=== PATIENT | female | born 1970 | race Caucasian/White ===

== ENCOUNTER 2016-05-10 08:05 | Day surgery (SDC) | payer OTHER ==
[~2016-05-10] VITALS: Ht 165.1 cm; Wt 67.1 kg
[~2016-05-10 08:05] MED LIST: LO LOESTRIN FE1 EACH PO
[2016-05-10 08:45] VITALS: BP 126/84
[2016-05-10 15:57] VITALS: BP 99/63
[2016-05-10 16:19] LABS: HEMATOCRIT 39.1 % (36.0-46.0); MCH 31.4 PG (29.0-34.0); MCHC 33.8 G/DL (30.0-36.0); MCV 92.9 FL (83-99); MEAN PLAT.VOLUME 11.4 uM^3 (9.5-12.4); PLATELET COUNT 187 K/uL (156-360); RBC DIS.WIDTH-CV 13.1 % (11.8-14.6); RBC DIS.WIDTH-SD 44.2 % (39-53); RED BLOOD COUNT 4.21 M/uL (3.80-5.20)
[2016-05-10 16:36] LABS: WHITE BLOOD COUNT 8.5 K/uL (4.1-10.2)
[2016-05-10 16:43] LABS: ANION GAP 8 MEQ/L (2-14); CHLORIDE 107 MEQ/L (99-109); GFR ESTIMATE (CALCULATED) > 59 mL/min/; GLUCOSE 207 mg/dL (70-99); SAMPLE HEMOLYSIS CHECK 0; SAMPLE ICTERIC CHECK 0; SAMPLE LIPEMIA CHECK 0; SODIUM 139 MEQ/L (136-147); UREA NITROGEN (BUN) 9 mg/dL (9-23)
[2016-05-10 20:00] VITALS: BP 114/65
[2016-05-11] VITALS (7 sets, daily range): BP systolic 100–113; BP diastolic 55–69
[2016-05-11 07:10] LABS: HEMATOCRIT 36.4 % (36.0-46.0); MCH 31.6 PG (29.0-34.0); MCHC 33.5 G/DL (30.0-36.0); MCV 94.3 FL (83-99); MEAN PLAT.VOLUME 11.8 uM^3 (9.5-12.4); PLATELET COUNT 198 K/uL (156-360); RBC DIS.WIDTH-CV 13.1 % (11.8-14.6); RED BLOOD COUNT 3.86 M/uL (3.80-5.20); WHITE BLOOD COUNT 8.8 K/uL (4.1-10.2)
[2016-05-11 07:39] LABS: ANION GAP 8 MEQ/L (2-14); CHLORIDE 107 MEQ/L (99-109); GFR ESTIMATE (CALCULATED) > 59 mL/min/; POTASSIUM 3.8 MEQ/L (3.7-5.4); SAMPLE HEMOLYSIS CHECK 0; SAMPLE ICTERIC CHECK 0; SAMPLE LIPEMIA CHECK 0; SODIUM 141 MEQ/L (136-147); UREA NITROGEN (BUN) 5 mg/dL (9-23)
[2016-05-11 07:42] LABS: GLUCOSE 113 mg/dL (70-99)
[2016-05-12 06:41] LABS: HEMATOCRIT 35.5 % (36.0-46.0); MCH 31.6 PG (29.0-34.0); MCHC 33.2 G/DL (30.0-36.0); MCV 95.2 FL (83-99); MEAN PLAT.VOLUME 11.8 uM^3 (9.5-12.4); PLATELET COUNT 171 K/uL (156-360); RBC DIS.WIDTH-CV 13.3 % (11.8-14.6); RBC DIS.WIDTH-SD 45.9 % (39-53); RED BLOOD COUNT 3.73 M/uL (3.80-5.20); WHITE BLOOD COUNT 6.8 K/uL (4.1-10.2)
[2016-05-12 07:17] LABS: ANION GAP 6 MEQ/L (2-14); CHLORIDE 109 MEQ/L (99-109); GFR ESTIMATE (CALCULATED) > 59 mL/min/; GLUCOSE 96 mg/dL (70-99); SAMPLE HEMOLYSIS CHECK 0; SAMPLE ICTERIC CHECK 0; SAMPLE LIPEMIA CHECK 0; SODIUM 143 MEQ/L (136-147); UREA NITROGEN (BUN) 9 mg/dL (9-23)
[2016-05-12 08:49] VITALS: BP 126/65
[2016-05-12] MEDS ORDERED: TRAMADOL HCL50 MG PO (09:05)
== END 2016-05-12 09:37 | disposition home or self-care (01) ==
LOC: SDC 08:05 → 2SOUTH 11:10 → SDC 12:09 → 2EAST 14:25 → SDC 16:18 → 2EAST 05-12 09:37
PROVIDERS: Obstetrics & Gynecology Gynecologic Oncology
DX: D28.0 Benign neoplasm of vulva (principal); Z80.3 Family history of malignant neoplasm of breast; Z82.0 Family history of epilepsy and other diseases of the nervous system; Z80.8 Family history of malignant neoplasm of other organs or systems; Z82.5 Family history of asthma and other chronic lower respiratory diseases; Z80.1 Family history of malignant neoplasm of trachea, bronchus and lung; Z88.0 Allergy status to penicillin; Z88.1 Allergy status to other antibiotic agents
CPT/HCPCS: 80048; 85027; 88305; G0378; J1100; J1170; J1580; J1650; J1885; J2250; J2270; J2405; J2765; J3010; J7050; S0030